=== PATIENT | female | born 1995 | race Two or more races ===

== ENCOUNTER 2019-02-20 04:30 | Emergency (ER) | payer MEDICAID ==
[~2019-02-20] VITALS: Ht 152.4 cm; Wt 68.0 kg
[2019-02-20 06:35] VITALS: BP 120/88
[2019-02-20] MEDS ORDERED: HYDROcodone-ACET 10/325MG TAB PO ONE (06:45)
== END 2019-02-20 07:54 | disposition home or self-care (01) ==
LOC: ER 04:34
DX: R51 Headache (principal); Z88.0 Allergy status to penicillin; Y07.03 Male partner, perpetrator of maltreatment and neglect; Y93.89 Activity, other specified; Y99.8 Other external cause status; Y92.89 Other specified places as the place of occurrence of the external cause
CPT/HCPCS: 70450; 73110